=== PATIENT | female | born 1985 | race Caucasian/White ===

== ENCOUNTER 2020-03-18 06:06 | Inpatient (IN) | payer OTHER ==
[2020-03-18] MEDS ORDERED: TERBUTALINE 1 MG/ML VIAL SQ PRN (06:24)
[2020-03-18] MEDS ORDERED: LIDOCAINE 0.5% (PF) 5 MG/ML (50 ML SDV) SQ PRN (06:24)
[2020-03-18] MEDS ORDERED: OXYTOCIN 10 UNIT/ML 1 ML VIAL IM PRN (06:24)
[2020-03-18] MEDS ORDERED: METHYLERGONOVINE 0.2 MG/ML 1 ML AMP IM PRN (06:24)
[2020-03-18] MEDS ORDERED: CARBOPROST TROMETHAMINE 250 MCG/ML 1 ML AMP IM PRN (06:24)
[2020-03-18] MEDS: LACTATED RINGERS 1,000 ML IV SCH ×2 (06:30→16:51)
[2020-03-18] MEDS ORDERED: OXYTOCIN 30 UNITS/500 ML NS 30 UNIT in SALINE 1 500ML.BAG IV SCH (06:30)
[2020-03-18 07:01] LABS: Basophils % (A) 0 %; Eosinophils # (A) 0.1 k/uL (0-0.7); Eosinophils % (A) 1 %; HCT 41.5 % (34.0-46.0); HGB 14.1 gm/dL (11.4-16.0); Lymphocytes # (A) 1.9 k/uL (1.0-4.8); Lymphocytes % (A) 17 %; MCH 29.9 pg (25.0-35.0); MCHC 33.9 g/dL (31.0-37.0); MCV 88.2 fL (80.0-100.0); Mean Platelet Volume 9.6; Monocytes # (A) 0.6 k/uL (0-1.0); Monocytes % (A) 6 %; Neutrophils # (A) 8.5 k/uL (1.3-7.7); Neutrophils % (A) 75 %; Platelet Count 175 k/uL (150-450); RBC 4.71 m/uL (3.80-5.40); RDW 13.4 % (11.5-15.5); WBC 11.3 k/uL (3.8-10.6)
[2020-03-18] MEDS ORDERED: diphenhydrAMINE 50 MG/ML 1 ML VIAL IVP PRN ×2 (14:16)
[2020-03-18] MEDS ORDERED: BENZOCAINE/MENTHOL SPRAY 1 GM/SPRAY AEROSOL TOPICAL PRN (14:16)
[2020-03-18] MEDS ORDERED: LANOLIN CREAM 5 GM TUBE TOPICAL PRN (14:16)
[2020-03-18] MEDS ORDERED: HYDROcodone/APAP 5-325MG 1 EACH TAB PO PRN (14:16)
[2020-03-18] MEDS ORDERED: diphenhydrAMINE 25 MG CAP PO PRN (14:16)
[2020-03-18] MEDS ORDERED: WITCH HAZEL 1 EACH MED..PAD TOPICAL PRN (14:16)
[2020-03-18] MEDS ORDERED: SIMETHICONE 80 MG CHEWABLE PO PRN (14:16)
[2020-03-18] MEDS ORDERED: ZOLPIDEM 5 MG TAB PO PRN (14:16)
[2020-03-18] MEDS ORDERED: diphenhydrAMINE 50 MG CAP PO PRN (14:16)
[2020-03-18] MEDS ORDERED: HYDROCORTISONE 2.5% RECTAL CREAM 30 GM TUBE RECTAL PRN (14:16)
[2020-03-18] MEDS ORDERED: IBUPROFEN 600 MG TAB PO PRN (14:16)
--- NOTE | 2020-03-18 14:20 | P.PROBDLV ---
Vaginal Delivery Note - . Vaginal Delivery Note: This is a 34-year-old 3 para 2001 at 38 and 1/sevenths weeks that presented to labor and delivery for induction of labor secondary to advanced cervical dilation. Patient was noted be 4 cm in the office yesterday. Patient has a history of rapid labor. Patient was admitted to labor and delivery and Pitocin induction of labor was begun. On physical exam this morning patient was noted to be 5 cm dilated. Patient made minimal change throughout the lunch are was noted to be 6//-1 station at this point amniotomy was performed. Patient quickly progressed to complete began pushing and had a normal spontaneous vaginal delivery of a viable female infant at 1350, weight of 7 lbs. 4 oz. with Apgars of 99 at one and 5 minutes respect daily. After two-minute delayed the umbilical cord was doubly clamped and cut and the infant was handed off to the maternal abdomen. Cord blood was then taken. On inspection the patient's vaginal vault a clitoral laceration was noted this was repaired after instillation of lidocaine with 4-0 chromic. In addition a first-degree vaginal laceration which was repaired with 3-0 Rapide in the usual fashion after instillation of lidocaine. The uterus is noted be firm and below the umbilicus, lochia is noted to be minimal. Patient and infant tolerated delivery well and are resting complete. All counts are noted to be correct 2.
[2020-03-18] MEDS ORDERED: OXYTOCIN 20 UNITS/1000 ML NS 1,000 ML IV SCH (14:30)
[2020-03-18] MEDS: ACETAMINOPHEN TAB 325 MG TAB PO PRN ×2 (14:55→20:13)
[2020-03-18 16:11] VITALS: RESP 16
[2020-03-18] MEDS: SENNOSIDES-DOCUSATE SODIUM 1 EACH TAB PO SCH (20:07)
[2020-03-18] MEDS: NAPROXEN 250 MG TAB PO PRN (22:40)
[2020-03-19] MEDS: NAPROXEN 250 MG TAB PO PRN (04:36)
[2020-03-19 07:30] VITALS: BP 116/76; PULSE 73; TEMP 98.2
[2020-03-19] MEDS: SENNOSIDES-DOCUSATE SODIUM 1 EACH TAB PO SCH (07:31)
[2020-03-19] MEDS ORDERED: [UNRECOGNIZED DRUG - REMARK] PO SCH (09:00)
--- NOTE | 2020-03-19 09:06 | P.DS ---
Providers Date of admission: 03/18/20 06:06 Expected date of discharge: 03/19/20 Attending physician: Viktoria Nettles Primary care physician: Stated None - Discharge Diagnosis(es) (1) Term Current Visit: Yes Status: Acute (2) Status post normal vaginal delivery Current Visit: Yes Status: Acute (3) First degree perineal laceration Current Visit: Yes Status: Acute Hospital Course: This is a pleasant 34-year-old 3 para 2001 at 38 and one sevenths weeks that presents to labor and delivery for augmentation of labor secondary to advanced cervical dilation. Patient was noted to be 4 cm in the office the day before admission. On admission exam patient was noted to be 5 cm dilated. Patient was admitted and Pitocin augmentation of labor was begun per protocol. Patient was noted to have regular contractions and made minimal change by the lunch hour, patient was then ruptured, clear fluid was obtained. Patient pressed quickly to complete and had a normal spent taste vaginal delivery of a viable female infant weight of 7 lbs. 4 oz. at 1350, Apgars were noted to be 9 and 9 at one and 5 minutes respect weight. Patient did sustain a first-degree vaginal laceration along with a small clitoral laceration. These were repaired in the usual fashion with 4-0 chromic. Patient has done well . On this day #1 she is ambulating and voiding without difficulty. She is tolerating a regular diet without nausea or vomiting. She states her pain is well-controlled and she is breast-feeding. She would like discharge home at 24 hours. Patient Condition at Discharge: Good Plan - Discharge Summary New Discharge Prescriptions: No Action Pnv No.95/Ferrous Fum/Folic AC [ Multivitamin Tablet] 1 tab PO DAILY Famotidine [Pepcid] 1 tab PO DAILY Discharge Medication List Famotidine [Pepcid] 1 tab PO DAILY 03/18/20 [History] Pnv No.95/Ferrous Fum/Folic AC [ Multivitamin Tablet] 1 tab PO DAILY 03/18/20 [History] Follow up Appointment(s)/Referral(s): Viktoria Nettles DO [Doctor of Osteopathic Medicine] - 4 Weeks Patient Instructions/Handouts: Vaginal Delivery (GEN), Vaginal Delivery (DC) Discharge Disposition: HOME SELF-CARE
[2020-03-19] MEDS: ACETAMINOPHEN TAB 325 MG TAB PO PRN (10:22)
--- NOTE | 2020-03-23 07:59 | P.HPOB ---
History of Present Illness H&P Date: 03/18/20 Chief Complaint: IUP at 38 and 1/sevenths weeks, advanced cervical dilation This is a pleasant 34-year-old 3 para 2001 at 38 and one sevenths weeks that presents to labor and delivery for induction of labor secondary to advanced cervical dilation and history of rapid labors. Patient has noted occasional contractions. Patient has been receiving routine care which has been essentially uncomplicated. Patient notes good movement this morning and denies vaginal bleeding. Review of Systems Constitutional: Denies chills, Denies fatigue, Denies fever Ears, nose, mouth and throat: Denies headache Cardiovascular: Reports leg edema Respiratory: Denies dyspnea Gastrointestinal: Denies nausea, Denies vomiting Genitourinary: Reports Past Medical History Past Medical History: No Reported History History of Any Multi-Drug Resistant Organisms: None Reported Past Surgical History: Ear Surgery Past Anesthesia/Blood Transfusion Reactions: No Reported Reaction Past Psychological History: No Psychological Hx Reported Smoking Status: Never smoker Past Alcohol Use History: None Reported Past Drug Use History: None Reported - Past Family History Mother Family Medical History: No Reported History Medications and Allergies Home Medications Medication Instructions Recorded Confirmed Type Famotidine [Pepcid] 1 tab PO DAILY 03/18/20 03/18/20 History Pnv No.95/Ferrous Fum/Folic AC 1 tab PO DAILY 03/18/20 03/18/20 History [ Multivitamin Tablet] Allergies Allergy/AdvReac Type Severity Reaction Status Date / Time ibuprofen AdvReac Rash/Hives Verified 03/18/20 06:21 Exam Osteopathic Statement: *. No significant issues noted on an osteopathic structural exam other than those noted in the History and Physical/Consult. 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 Results Result Diagrams: 03/18/20 06:41 Abnormal Lab Results - Last 24 Hours (Table) 03/18/20 Range/Units 06:41 WBC 11.3 H (3.8-10.6) k/uL Neutrophils # 8.5 H (1.3-7.7) k/uL Assessment and Plan (1) Term Current Visit: Yes Status: Acute Code(s): Z34.90 - ENCNTR FOR SUPRVSN OF NORMAL , UNSP, UNSP TRIMESTER SNOMED Code(s): 64187325 Plan: Patient is admitted to labor and delivery for Pitocin augmentation of labor. Patient does desire to labor without an epidural. Anticipate spontaneous vaginal delivery later today.
== END 2020-03-19 16:36 | disposition home or self-care (01) | DRG 807 ==
LOC: 4FBP 06:06
PROVIDERS: ADMIT Obstetrics & Gynecology Obstetrics; ATTEND Obstetrics & Gynecology Obstetrics
PROC: 0HQ9XZZ Repair Perineum Skin, External Approach (ICD-10-PCS; principal; 2020-03-18)
PROC: 3E033VJ Introduction of Other Hormone into Peripheral Vein, Percutaneous Approach (ICD-10-PCS; principal; 2020-03-18)
PROC: 10907ZC Drainage of Amniotic Fluid, Therapeutic from Products of Conception, Via Natural or Artificial Opening (ICD-10-PCS; principal; 2020-03-18)
PROC: 10E0XZZ Delivery of Products of Conception, External Approach (ICD-10-PCS; principal; 2020-03-18)
DX: O70.0 First degree perineal laceration during delivery (principal); Z37.0 Single live birth; Z3A.38 38 weeks gestation of pregnancy
CPT/HCPCS: 85025; 86850; 86900; 86901